=== PATIENT | male | born 1970 | race Caucasian/White ===

== ENCOUNTER 2021-07-26 09:04 | Emergency (ER) | payer OTHER ==
[2021-07-26] MEDS ORDERED: AZITHROMYCIN250 MG PO (09:28)
== END 2021-07-26 19:14 | disposition home or self-care (01) ==
LOC: FER 09:04
DX: U07.1 COVID-19 (principal); J40 Bronchitis, not specified as acute or chronic
CPT/HCPCS: 93005; U0002

== ENCOUNTER → 2021-11-08 | Day surgery (SDC) | payer OTHER ==
[~2021-11-08] VITALS: Ht 182.9 cm; Wt 158.3 kg
[~2021-11-08] MED LIST: AZITHROMYCIN250 MG PO; SYNTHROID200 MCG PO; VALSARTAN-HCTZ1 EAC3 PO
== END | disposition home or self-care (01) ==
LOC: FAS 06:15
DX: D12.2 Benign neoplasm of ascending colon (principal); D12.4 Benign neoplasm of descending colon; D12.3 Benign neoplasm of transverse colon; D64.9 Anemia, unspecified; C25.9 Malignant neoplasm of pancreas, unspecified; C78.7 Secondary malignant neoplasm of liver and intrahepatic bile duct; R93.3 Abnormal findings on diagnostic imaging of other parts of digestive tract; I10 Essential (primary) hypertension; E03.9 Hypothyroidism, unspecified; F17.290 Nicotine dependence, other tobacco product, uncomplicated; G47.30 Sleep apnea, unspecified; Z88.8 Allergy status to other drugs, medicaments and biological substances; Z79.899 Other long term (current) drug therapy
CPT/HCPCS: J1610; J2250; J2704; J7120